=== PATIENT | female | born 1945 | race Caucasian/White ===

== ENCOUNTER 2017-06-20 10:41 | Emergency (ER) | payer MEDICARE, OTHER ==
[2017-06-20] MEDS ORDERED: NAPROXEN SODIUM 550 MG TABLET PO ONE (11:07)
--- NOTE | 2017-06-20 11:11 | ERNOTE ---
Upper Extremity HPI - Narrative Date of Service: 06/20/17 - General Extremities Pain Location: wrist: right, hand: right Time Seen by Provider: 06/20/17 11:00 Source: patient Exam Limitations: no limitations - Immun/Allergies/Home Medications Immunizations: IMMUNIZATION HX Immunizations Up to Date Yes Allergies/Adverse Reactions: Allergies Allergy/AdvReac Type Severity Reaction Status Date / Time latex Allergy Mild Itching Verified 06/20/17 11:29 Tetanus Vaccines and Toxoid Allergy Mild Other Verified 06/20/17 11:29 [Tetanus] Home Medications: HOME MEDICATIONS Calcium 600 + Vit D Tablet 600 mg PO DAILY 04/30/13 [Last Taken Unknown] Celexa 40 mg PO DAILY 04/30/13 [Last Taken Unknown] Levothyroxine Sodium [Synthroid] 25 mcg PO DAILY 04/30/13 [Last Taken Unknown] Multivitamin 1 tab PO DAILY 04/30/13 [Last Taken Unknown] Alendronate Sodium [Fosamax] 70 mg PO DAILY 06/20/17 [Last Taken Unknown] Aripiprazole [Abilify] 5 mg PO HS 06/20/17 [Last Taken Unknown] Sulfamethoxazole/Trimethoprim [Bactrim Ds] 1 tab PO BID #28 tab 06/20/17 [Last Taken Unknown] - History of Present Illness Narrative: Pt. comes in with c/o R hand and wrist swelling that started on Tuesday and has worsened since. Pt. states that the swollen area is also red and hot. Pt. denies any fevers, SOB, numbness, tingling, or recent injury. Pt. denies states that she has some mild pain that is in the surface of the area and does not feel deep. Modifying Factors - (Improves): Reports: other - denies Modifying Factors - (Worsens): Reports: other - palapation Prior Treament: Reports: other - denies - Patient's Past Medical History Patient History - Medical: No pertinent hx Patient History - Cardiac/Respiratory: No pertinent hx Patient History - Cancer: Brain, Surgical Treatment - Social History Smoking Status: Current some day smoker Have you smoked in the past 12 months: Yes - Immunizations Immunizations Up to Date: Yes ED Progress - Date and Time Seen: Date and Time: 06/20/17 12:01 As pt. has no known njury and has full rom with only mild pain feel that an xray would be of no benefit. - Results and Orders Patient's Lab Results:: I have reviewed the patient's lab results. Results and Orders: indicates acute infection with elevated WBC - Vital Signs Patient's Vital Signs:: I have reviewed the patient's vital signs. Vital Signs: Vital Signs 06/20/17 10:56 Temperature 36.7 C Pulse Rate 71 Respiratory 14 Rate Blood Pressure 163/85 O2 Sat by Pulse 97 Oximetry - Progress/Reassessment Chief Complaint: Wrist Injury/Pain Departure Clinical Impression: Cellulitis and abscess of hand - Departure Disposition: Home self-care Condition: Good Instructions: Cellulitis, Adult, [id number] Additional Instructions: Please follow up with primary provider in 2-3 days. Referrals: Artur Simmons MD [Primary Care Provider] - Prescriptions: Sulfamethoxazole/Trimethoprim [Bactrim Ds] 1 tab PO BID #28 tab
[2017-06-20 11:23] LABS: Hematocrit 36.2 % (37.0-47.0); Hemoglobin 12.1 gm/dL (12.5-16.0); Mean Cell Volume 90.7 fl (78-100); Mean Corpuscular Hemoglobin 30.3 pg (27-31); Mean Corpuscular Hgb Conc 33.4 g/dl (32-36); Neutrophil # 8.2 K/mm3 (1.3-6.0); Neutrophil % 70.1 % (42-75.0); Platelet Count 397 K/mm3 (150-450); Red Blood Count 3.99 M/mm3 (4.2-5.4); White Blood Count 11.7 K/mm3 (4.0-10.5)
[2017-06-20 11:44] LABS: Albumin * 3.3 gm/dl (3.4-5.0); Anion Gap 16.1 mmol/L (6.8-13.8); BUN/Creatinine Ratio 12.2 (9.0-21.6); Bilirubin, Total 0.5 mg/dL (0.0-1.1); Ca. Corrected For Albumin 9.7 mg/dL (8.4-10.2); Calcium * 9.5 mg/dL (7.9-10.9); Carbon Dioxide 24.3 mmol/L (24-32.6); Potassium 3.4 mmol/L (3.4-4.6); Uric Acid 3.7 mg/dL (2.6-7.2)
[2017-06-20 12:01] VITALS: BP 160/80
[2017-06-20] MEDS ORDERED: NAPROXEN SODIUM 550 MG TABLET ONE (12:14)
== END 2017-06-20 12:15 | disposition home or self-care (01) ==
LOC: ER 10:41
DX: L03.113 Cellulitis of right upper limb (principal); L02.511 Cutaneous abscess of right hand; F17.200 Nicotine dependence, unspecified, uncomplicated

== ENCOUNTER 2017-06-24 09:40 | Emergency (ER) | payer MEDICARE, OTHER ==
[2017-06-24 10:18] VITALS: BP 158/75
--- NOTE | 2017-06-24 10:43 | ERNOTE ---
Integumentary HPI - General Time Seen by Provider: 06/24/17 10:37 Source: patient Exam Limitations: no limitations - Immun/Allergies/Home Medications Immunizations: IMMUNIZATION HX Immunizations Up to Date Yes History of Influenza Vaccine No Hx Pneumococcal Vaccination No Allergies/Adverse Reactions: Allergies Allergy/AdvReac Type Severity Reaction Status Date / Time latex Allergy Mild Itching Verified 06/20/17 11:29 Tetanus Vaccines and Toxoid Allergy Mild Other Verified 06/20/17 11:29 [Tetanus] Home Medications: HOME MEDICATIONS Calcium 600 + Vit D Tablet 600 mg PO DAILY 04/30/13 [Last Taken Unknown] Celexa 40 mg PO DAILY 04/30/13 [Last Taken Unknown] Levothyroxine Sodium [Synthroid] 25 mcg PO DAILY 04/30/13 [Last Taken Unknown] Multivitamin 1 tab PO DAILY 04/30/13 [Last Taken Unknown] Alendronate Sodium [Fosamax] 70 mg PO DAILY 06/20/17 [Last Taken Unknown] Aripiprazole [Abilify] 5 mg PO HS 06/20/17 [Last Taken Unknown] Sulfamethoxazole/Trimethoprim [Bactrim Ds] 1 tab PO BID #28 tab 06/20/17 [Last Taken Unknown] - History of Present Illness Narrative: Patient is here for cellulitis of the right wrist. On June 20 she was prescribed Bactrim. Patient has been taking her Bactrim faithfully. Patient feels that her cellulitis is not getting better in fact she states that it is getting worse denies any fevers or chills nausea or vomiting Review of Systems - Review of Systems Constitutional: Present: no symptoms reported EYE: Present: no symptoms reported ENT: Present: no symptoms reported Respiratory: Present: no symptoms reported Cardiology: Present: no symptoms reported Gastrointestinal/Abdominal: Present: no symptoms reported Genitourinary: Present: no symptoms reported Musculoskeletal: Present: no symptoms reported Skin: Present: See HPI - Patient's Past Medical History Patient History - Medical: No pertinent hx, Depression, Hypothyroidism Patient History - Cardiac/Respiratory: No pertinent hx Patient History - Cancer: Breast Patient History - Surgical Procedures: Cancer Surgery, Cholecystectomy, Colonoscopy, Hysterectomy Patient History - Other: None LMP (females 10-50): Menopausal - Social History Living Situations: home Abuse History: No History of abuse Psych History: Hx of Depression, Current tx/ever been on anti-depressants or anti-anxiety meds Smoking Status: Current every day smoker Have you smoked in the past 12 months: Yes Alcohol Use: none Drug Use: none - Immunizations Immunizations Up to Date: Yes Hx Pneumococcal Vaccination: No History of Influenza Vaccine: No Physical Exam - Physical Exam General Appearance: Present: wd/wn, alert, no apparent distress Extremity Exam: Present: other - there is redness swelling and tenderness and warmth in the dorsal aspect of the patient's right wrist and slightly extending to the volar aspect. This examiner was not here on June 20 therefore I have nothing to compare this to the area is not delineated or demarcated. ED Progress - Vital Signs Patient's Vital Signs:: I have reviewed the patient's vital signs. Vital Signs: Vital Signs 06/24/17 10:10 Temperature 36.3 C L Pulse Rate 73 Respiratory 16 Rate Blood Pressure 158/75 O2 Sat by Pulse 97 Oximetry - Progress/Reassessment Chief Complaint: Cellulitis Plan - Plan Plan: It appears that the Bactrim is not working as well as the patient would expect it to. I did offer the patient the option of getting a 1 gm Rocephin IV, and switch to Cipro 50mg BID however pt adamantly refused and decided to follow up with her PCP instead Departure Clinical Impression: Cellulitis Qualifiers: Site of cellulitis: extremity Site of cellulitis of extremity: upper extremity Laterality: right Qualified Code(s): L03.113 - Cellulitis of right upper limb - Departure Disposition: Home self-care Condition: Fair Referrals: Artur Simmons MD [Primary Care Provider] -
== END 2017-06-24 10:46 | disposition home or self-care (01) ==
LOC: ER 09:40
DX: L03.113 Cellulitis of right upper limb (principal); F17.200 Nicotine dependence, unspecified, uncomplicated